=== PATIENT | male | born 1935 | race Caucasian/White ===

== ENCOUNTER 2018-09-24 07:57 | Day surgery (SDC) | payer MEDICARE, OTHER ==
[2018-09-23 13:15] VITALS: BMI 23.3
--- NOTE | 2018-09-24 08:51 | CP.SDSHP ---
Same Day Surgery H & P - History Proposed Procedure: colonoscopy - Previous Medical/Surgical History Comments: prostate carcinoma thoracic disc phlebitis - Allergies Allergies: Allergies No Known Allergies Allergy (Verified 09/23/18 11:54) - Date & Time Date: 09/24/18 Time: 08:50 Short Stay Discharge - Short Stay Discharge Admitting Diagnosis/Reason for Visit: H/O COLONIC POLYPS Disposition: HOME/ ROUTINE Referrals: Bertin Mejia MD [Primary Care Provider] -
[2018-09-24] MEDS ORDERED: Lactated Ringer's 500 ML IV ONE (09:07)
[2018-09-24] MEDS ORDERED: Propofol 10 mg/ml Inj (20 ML) ONE (09:12)
[2018-09-24 10:03] VITALS: TEMP 98.5
[2018-09-24 10:26] VITALS: O2SAT 99
[2018-09-24 11:06] VITALS: BP 132/67; PULSE 67; RESP 13
== END 2018-09-24 11:00 | disposition home or self-care (01) ==
LOC: C.ENDO 07:57
PROVIDERS: ATTEND Colon & Rectal Surgery
DX: Z86.010 Personal history of colon polyps (principal); K64.8 Other hemorrhoids
CPT/HCPCS: 45378; J2704; J7120